=== PATIENT | male | born 1945 | race Caucasian/White ===

== ENCOUNTER 2022-12-20 14:39 | Outpatient (CLI) | payer MEDICARE ==
[~2022-12-20 14:39] MED LIST: Magnevist 469MG/ML 20 ML VIAL ONE
== END 2022-12-20 14:40 | disposition home or self-care (01) ==
LOC: CSHMRI 14:39
PROVIDERS: ATTEND Psychiatry & Neurology Neurology
DX: R56.9 Unspecified convulsions (principal); R94.02 Abnormal brain scan
CPT/HCPCS: 70553; 82565